=== PATIENT | female | born 1950 | race Caucasian/White ===

== ENCOUNTER → 2016-09-23 | Outpatient (CLI) | payer MEDICARE ==
[~2016-09-23] MED LIST: CETI10CA PO; DULO30CA2 PO; HYDR-3144 PO; OMEP-110 PO; PHEN37.53 PO; TIZA4CAP PO
== END | disposition home or self-care (01) ==
LOC: CFH 12:35
PROVIDERS: ATTEND Nurse Practitioner Family
DX: M17.11 Unilateral primary osteoarthritis, right knee (principal)

== ENCOUNTER → 2017-06-16 | Outpatient (CLI) | payer MEDICARE ==
[~2017-06-16] MED LIST changes: -HYDR-3144 PO; +HYDR-3245 PO
== END ==
LOC: RAD 10:03
PROVIDERS: ATTEND Nurse Practitioner Family
DX: M17.11 Unilateral primary osteoarthritis, right knee (principal)

== ENCOUNTER 2018-05-23 13:16 | Inpatient (IN) | payer MEDICARE ==
[~2018-05-23] VITALS: Ht 167.6 cm; Wt 88.4 kg
[~2018-05-23 13:16] MED LIST changes: +ASPI-496 PO; +BUPIVACAINE/PF-EPI 0.5% 1:200K ONE; +FLUO20CA19 PO; +IRBE150T25 PO; +LORA10CA PO; +ROSU5TAB PO; +SENN-31 PO; +TRAZ50TA66 PO
[2018-05-23] MEDS ORDERED: LACTATED RINGERS 1,000 ML IV SCH (13:39)
[2018-05-23] MEDS ORDERED: MIDAZOLAM 1 MG/ML, 2ML ONE (16:07)
[2018-05-23] MEDS ORDERED: FENTANYL PF 250 MCG/5ML ONE (16:08)
[2018-05-23] MEDS ORDERED: PROPOFOL 10 MG/ML, 20ML ONE (16:48)
[2018-05-23] MEDS ORDERED: ONDANSETRON 2MG/ML, 2ML ONE (16:48)
[2018-05-23] MEDS ORDERED: METOPROLOL 1 MG/ML, 5ML ONE (16:48)
[2018-05-23] MEDS ORDERED: SUCCINYLCHOLINE 20 MG/ML, 10ML ONE (16:48)
[2018-05-23] MEDS ORDERED: SCOPOLAMINE PATCH, 1.5MG PATCH.TD72 TD ONE (16:48)
[2018-05-23] MEDS ORDERED: OXYcodone 5 MG/5 ML ORAL.SOL UDC PO PRN (17:30)
[2018-05-23] MEDS ORDERED: ALBUTEROL SULFATE 2.5 MG/3 ML NPPB PRN (17:30)
[2018-05-23] MEDS ORDERED: HYDROmorphone 2 MG/ML, 1ML IVPush PRN (17:30)
[2018-05-23] MEDS ORDERED: KETOROLAC 30 MG/1 ML IV PRN (17:30)
[2018-05-23] MEDS ORDERED: LABETALOL 5MG/ML, 20ML IV PRN (17:30)
[2018-05-23] MEDS ORDERED: ACETAMINOPHEN 325 MG TABLET PO PRN ×2 (17:30→23:00)
[2018-05-23] MEDS ORDERED: PROMETHAZINE 25 MG/ML, 1ML IV PRN (17:30)
[2018-05-23] MEDS ORDERED: hydrALAzine 20 MG/ML, 1ML IV PRN ×2 (17:30→23:00)
[2018-05-23] MEDS ORDERED: MEPERIDINE/PF 25MG/0.5ML IVPush PRN (17:30)
[2018-05-23] MEDS ORDERED: DIAZEPAM 5 MG/ML, 2ML IVPush PRN (17:30)
[2018-05-23] MEDS ORDERED: FENTANYL PF 100 MCG/2ML ONE ×2 (18:20→19:37)
[2018-05-23] MEDS ORDERED: ACETAMINOPHEN 650 MG/20.3 ML UDC ONE (19:36)
[2018-05-23] MEDS ORDERED: OXYcodone 5 MG/5 ML ORAL.SOL UDC ONE (19:38)
[2018-05-23] MEDS: FENTANYL PF 100 MCG/2ML IV PRN ×3 (19:40→20:05)
[2018-05-23] MEDS ORDERED: ONDANSETRON 2MG/ML, 2ML IV PRN (23:00)
[2018-05-23] MEDS ORDERED: ACETAMINOPHEN 650 MG SUPP PR PRN (23:00)
[2018-05-23 23:57] VITALS: BP 114/76
[2018-05-24 02:35] VITALS: BP 126/72
[2018-05-24 04:05] VITALS: BP 113/80
[2018-05-24] MEDS ORDERED: OMEPRAZOLE 20 MG CAPSULE.DR PO SCH (06:00)
[2018-05-24] MEDS: HYDROcodone/APAP 5/325 TABLET PO PRN ×2 (06:18→10:11)
[2018-05-24 08:00] VITALS: BP 118/78
[2018-05-24] MEDS ORDERED: FLUOXETINE HCL 20 MG CAPSULE PO SCH (09:00)
[2018-05-24] MEDS ORDERED: IRBESARTAN 150 MG TABLET PO SCH (09:00)
[2018-05-24] MEDS ORDERED: LORATADINE 10 MG TABLET PO SCH (09:00)
[2018-05-24] MEDS ORDERED: SODIUM CHLORIDE FLUSH 10ML SYR IVF SCH (09:00)
[2018-05-24] MEDS ORDERED: SENNA/DOCUSATE TABLET PO SCH (09:00)
[2018-05-24] MEDS ORDERED: CALCIUM/VITAMIN D3 250-125 TABLET PO SCH (09:00)
[2018-05-24] MEDS ORDERED: DULOXETINE 30 MG CAPSULE.DR PO SCH (09:00)
[2018-05-24] MEDS ORDERED: HYDR-3240 PO (09:12)
[2018-05-24] MEDS ORDERED: CALC-112 PO (09:58)
[2018-05-24] MEDS ORDERED: ATORVASTATIN 10 MG TABLET PO SCH (21:00)
[2018-05-24] MEDS ORDERED: TRAZODONE 50MG TABLET PO SCH (21:00)
== END 2018-05-24 10:50 | disposition home or self-care (01) | DRG 626 ==
LOC: OUT 13:16 → 4NOR 20:46 → OUT 21:57 → DCLOUNGE 05-24 10:40
PROVIDERS: ADMIT Surgery; ATTEND Surgery
PROC: 4A11X4G Monitoring of Peripheral Nervous Electrical Activity, Intraoperative, External Approach (ICD-10-PCS; 2018-05-23)
PROC: 0GTG0ZZ Resection of Left Thyroid Gland Lobe, Open Approach (ICD-10-PCS; 2018-05-23)
PROC: 0GBJ0ZZ Excision of Thyroid Gland Isthmus, Open Approach (ICD-10-PCS; principal; 2018-05-23 15:15)
DX: E21.0 Primary hyperparathyroidism (principal); E44.1 Mild protein-calorie malnutrition; I10 Essential (primary) hypertension; E66.9 Obesity, unspecified; E78.5 Hyperlipidemia, unspecified; K21.9 Gastro-esophageal reflux disease without esophagitis; E03.9 Hypothyroidism, unspecified; M85.80 Other specified disorders of bone density and structure, unspecified site; Z98.51 Tubal ligation status; Z68.31 Body mass index [BMI] 31.0-31.9, adult; Z91.013 Allergy to seafood; Z79.899 Other long term (current) drug therapy
CPT/HCPCS: 36415; 82310; 83970; 88305; 88307; 88331; G0378; J2250; J2405; J2704; J3010; J3360; C1760; J0330; J7120

== ENCOUNTER → 2019-10-31 | Outpatient (CLI) | payer MEDICARE ==
[~2019-10-31] MED LIST changes: +ASPI325T17 PO; +BACL20TA PO; -BUPIVACAINE/PF-EPI 0.5% 1:200K ONE; +CALC-112 PO; +DIPH25CA26 PO; +GABA300C PO; +GABA300C10 PO; +HYDR-3237 PO; +HYDR-3240 PO; -IRBE150T25 PO; +IRBE150T9 PO; +LEVO25TA4 PO; +METR500T PO; +OMNIPAQUE 350 MG/ML, 100ML BOTTLE ONE; +OXYcodone/APAP 5/325MG PO; +POLY17PO5 PO; +TRAZ-96 PO
== END | disposition home or self-care (01) ==
LOC: RAD 13:53
PROVIDERS: ATTEND Surgery
DX: J98.11 Atelectasis (principal); N28.1 Cyst of kidney, acquired; M51.34 Other intervertebral disc degeneration, thoracic region
CPT/HCPCS: 71275; 74177; Q9967